=== PATIENT | female | born 1985 | race Caucasian/White ===

== ENCOUNTER 2016-12-25 00:19 | Emergency (ER) | payer OTHER ==
[~2016-12-25] VITALS: Ht 172.7 cm; Wt 95.3 kg
[~2016-12-25 00:19] MED LIST: ATARAX25 MG PO; AUGMENTIN 875 M1 TAB PO; BACTRIM DS 8001 TA1 PO; BACTROBAN CREAM15 GM T; BLADDER CONTROL; CATAFLAM50 MG PO; CEPHALEXIN500 M1 PO; CIPROFLOXACIN500 MG PO; CLARITIN10 MG PO; CLEOCIN HCL150 MG PO; CLINDAMYCIN HC300 MG PO; CLINDAMYCIN150 MG PO; COLACE100 MG PO; DIFLUCAN150 MG PO; EFFEXOR XR150 M1 PO; EFFEXOR75 MG PO; ELIMITE 5%60 GM T; FLEXERIL5 MG PO; FLONASE ALLERG9.9 ML NAS; GEODON80 MG; HYDROCHLOROTH12.5 MG PO; HYDROCODONE BIT1 T11 PO; KEFLEX500 MG PO; LEVOFLOXACIN500 MG PO; MACROBID100 M1 PO; MEDROL DOSEPAK4 MG PO; MIRALAX POWDER17 G1 PO; MOTRIN800 MG PO; MYLICON,MYLANTA40 MG PO; NAPROSYN500 MG PO; NAPROXEN EC500 MG PO; NORCO 5-325 TA1 EACH PO; OXYBUTYNIN5 MG PO; PERCOCET 325 MG1 TA2 PO; PERCOCET 325 MG1 TA7 PO; PHENERGAN25 MG RC; PREDNICOT20 MG PO; PREDNISONE10 MG PO; PREDNISONE20 MG PO; PRILOSEC20 M1 PO; PYRIDIUM200 M1 PO; PYRIDIUM200 MG PO; ROBITUSSIN AC 110 ML PO; TORADOL10 MG PO; TRAMADOL HCL50 MG PO; VENLAFAXINE HCL75 MG PO; VENLAFAXINE150 MG PO; VICODIN 5/500 505 MG PO; XANAX2 MG PO; ZOFRAN ODT4 MG SL; Zofran4 MG PO
[2016-12-25 00:50] VITALS: BP 150/110
[2017-01-08] MEDS ORDERED: MACROBID100 M1 PO (15:36)
== END 2016-12-25 03:50 | disposition home or self-care (01) ==
LOC: ED 00:19
DX: S09.93XA Unspecified injury of face, initial encounter (principal); M54.2 Cervicalgia; F17.200 Nicotine dependence, unspecified, uncomplicated; Z90.49 Acquired absence of other specified parts of digestive tract; Z88.2 Allergy status to sulfonamides; Z88.1 Allergy status to other antibiotic agents; Z88.8 Allergy status to other drugs, medicaments and biological substances; Y08.89XA Assault by other specified means, initial encounter; Y93.89 Activity, other specified; Y92.89 Other specified places as the place of occurrence of the external cause; Y99.9 Unspecified external cause status

== ENCOUNTER 2017-04-06 01:42 | Emergency (ER) | payer OTHER ==
[~2017-04-06] VITALS: Ht 175.2 cm; Wt 86.2 kg
[2017-04-06 01:51] VITALS: BP 149/94
[2017-04-06] MEDS ORDERED: CEFDINIR300 MG PO (02:04)
== END 2017-04-06 02:40 | disposition home or self-care (01) ==
LOC: ED 01:42
DX: J40 Bronchitis, not specified as acute or chronic (principal); J02.9 Acute pharyngitis, unspecified; Z90.49 Acquired absence of other specified parts of digestive tract; Z79.899 Other long term (current) drug therapy; Z88.2 Allergy status to sulfonamides; Z88.1 Allergy status to other antibiotic agents

== ENCOUNTER 2017-06-21 03:11 | Emergency (ER) | payer OTHER ==
[~2017-06-21] VITALS: Ht 175.2 cm; Wt 86.2 kg
[~2017-06-21 03:11] MED LIST changes: +CEFDINIR300 MG PO
[2017-06-21 03:23] VITALS: BP 180/98
[2017-06-21] MEDS ORDERED: FLAGYL500 MG PO (03:59)
[2017-06-21] MEDS ORDERED: ZITHROMAX250 MG PO (03:59)
[2017-06-21 04:18] LABS: BILIRUBIN NEGATIVE (NEGATIVE); BLOOD NEGATIVE (NEGATIVE); CLARITY CLEAR (CLEAR); COLOR YELLOW (YELLOW); GLUCOSE NEGATIVE (NEGATIVE); KETONE NEGATIVE (NEGATIVE); LEUKO ESTERASE NEGATIVE (NEGATIVE); NITRITE NEGATIVE (NEGATIVE); PH 6.5 (5.0-9.0); PROTEIN NEGATIVE (NEGATIVE); UROBILINOGEN 0.2 E.U./dl (0.2-1.0)
[2017-06-21 04:27] LABS: BACTERIA TRACE; YEAST 1+
[2017-06-21 04:28] LABS: URINE REFLEX COMMENT NO (NO)
== END 2017-06-21 05:16 | disposition home or self-care (01) ==
LOC: ED 03:11
PROVIDERS: Emergency Medicine Emergency Medical Services
DX: Z20.2 Contact with and (suspected) exposure to infections with a predominantly sexual mode of transmission (principal); R30.0 Dysuria; R10.2 Pelvic and perineal pain; Z88.1 Allergy status to other antibiotic agents; Z88.2 Allergy status to sulfonamides; Z79.899 Other long term (current) drug therapy

== ENCOUNTER 2017-07-27 13:24 | Emergency (ER) | payer OTHER ==
[~2017-07-27] VITALS: Ht 175.2 cm; Wt 86.2 kg
[~2017-07-27 13:24] MED LIST changes: +FLAGYL500 MG PO; +ZITHROMAX250 MG PO
[2017-07-27 13:45] VITALS: BP 150/90
[2017-07-27] MEDS ORDERED: CEPHALEXIN500 M1 PO (13:59)
== END 2017-07-27 14:03 | disposition home or self-care (01) ==
LOC: ED 13:24
DX: S80.862A Insect bite (nonvenomous), left lower leg, initial encounter (principal); F17.200 Nicotine dependence, unspecified, uncomplicated; Z90.49 Acquired absence of other specified parts of digestive tract; Z79.899 Other long term (current) drug therapy; Z88.2 Allergy status to sulfonamides; Z88.1 Allergy status to other antibiotic agents; Z88.8 Allergy status to other drugs, medicaments and biological substances; W57.XXXA Bitten or stung by nonvenomous insect and other nonvenomous arthropods, initial encounter; Y93.89 Activity, other specified; Y92.89 Other specified places as the place of occurrence of the external cause; Y99.9 Unspecified external cause status

== ENCOUNTER 2017-09-13 18:15 | Emergency (ER) | payer OTHER ==
[~2017-09-13] VITALS: Ht 175.2 cm; Wt 90.7 kg
[2017-09-13 18:23] VITALS: BP 145/100
[2017-09-13 18:52] LABS: BASO % 0.5 % (0.0-1.0); EOS # 0.1 10*3/uL (0.0-0.4); EOS % 1.4 % (1.0-4.0); HEMATOCRIT 50.6 % (37.0-47.0); HEMOGLOBIN 16.8 g/dl (12.0-16.0); LYMPH # 2.4 10*3/uL (1.3-4.4); LYMPH % 31.6 % (27.0-41.0); MEAN CELL VOLUME 91.3 fl (81.0-99.0); MEAN CORPUSCULAR HGB 30.3 pg (27.0-31.0); MEAN CORPUSCULAR HGB CONC 33.2 g/dl (33.0-37.0); MEAN PLATELET VOLUME 12.2 fl (9.6-12.3); MONO # 0.4 10*3/uL (0.1-1.0); MONO % 5.1 % (3.0-9.0); NEUT # 4.5 10*3/uL (2.3-7.9); PLATELET COUNT AUTOMATED 157 10*3/uL (130-400); RED BLOOD COUNT 5.54 10*6/uL (4.10-5.10); RED CELL DISTRI WIDTH 13.9 % (0-14.5); WHITE BLOOD COUNT 7.6 10*3/uL (4.8-10.8)
[2017-09-13 18:52] LABS: BILIRUBIN NEGATIVE (NEGATIVE); BLOOD 3+ (NEGATIVE); CLARITY SL CLOUDY (CLEAR); COLOR YELLOW (YELLOW); GLUCOSE NEGATIVE (NEGATIVE); KETONE NEGATIVE (NEGATIVE); LEUKO ESTERASE TRACE (NEGATIVE); NITRITE NEGATIVE (NEGATIVE); PH 7.5 (5.0-9.0); UROBILINOGEN >= 8.0 E.U./dl (0.2-1.0)
[2017-09-13 19:05] LABS: BACTERIA 1+; EPITHELIAL CELLS TNTC
[2017-09-13 19:09] LABS: ALBUMIN 3.8 gm/dl (3.1-4.5); ALKALINE PHOSPHATASE 89 U/L (45-117); BUN 8 mg/dl (7-24); CHLORIDE 105 mmol/L (98-107); CREATININE 1.02 mg/dL (0.55-1.02); LIPASE 218 U/L (73-393); POTASSIUM 4.1 mmol/L (3.5-5.1); SGOT/AST 49 IU/L (3-35); SGPT/ALT 63 U/L (12-78); SODIUM 139 mmol/L (136-145); TOTAL PROTEIN 8.2 gm/dL (6.4-8.2)
[2017-09-13] MEDS ORDERED: PYRIDIUM100 MG PO (20:32)
[2017-09-13] MEDS ORDERED: CIPRO500 MG PO (20:32)
== END 2017-09-13 20:37 | disposition home or self-care (01) ==
LOC: ED 18:15
PROVIDERS: Nurse Practitioner Family
DX: N30.01 Acute cystitis with hematuria (principal); F17.200 Nicotine dependence, unspecified, uncomplicated; Z88.1 Allergy status to other antibiotic agents; Z88.2 Allergy status to sulfonamides; Z90.49 Acquired absence of other specified parts of digestive tract

== ENCOUNTER 2017-10-26 15:32 | Emergency (ER) | payer MEDICAID ==
[~2017-10-26] VITALS: Ht 175.2 cm; Wt 95.3 kg
[~2017-10-26 15:32] MED LIST changes: +CIPRO500 MG PO; +PYRIDIUM100 MG PO
[2017-10-26 15:42] VITALS: BP 136/98
[2017-10-26] MEDS ORDERED: AUGMENTIN 875875 MG PO (16:05)
[2017-10-26] MEDS ORDERED: BACTROBAN CREAM15 GM PO (16:05)
[2017-10-26] MEDS ORDERED: FLONASE ALLERG9.9 ML NAS (16:05)
== END 2017-10-26 16:22 | disposition home or self-care (01) ==
LOC: ED 15:32
DX: J01.90 Acute sinusitis, unspecified (principal); F17.200 Nicotine dependence, unspecified, uncomplicated; R21 Rash and other nonspecific skin eruption; Z88.2 Allergy status to sulfonamides; Z88.1 Allergy status to other antibiotic agents

== ENCOUNTER 2017-11-02 16:42 | Emergency (ER) | payer SELFPAY ==
[~2017-11-02] VITALS: Wt 90.7 kg
[~2017-11-02 16:42] MED LIST changes: +AUGMENTIN 875875 MG PO; +BACTROBAN CREAM15 GM PO
[2017-11-02 16:54] VITALS: BP 145/84
[2017-11-02] MEDS ORDERED: PREDNISONE50 MG PO (18:37)
== END 2017-11-02 19:05 | disposition home or self-care (01) ==
LOC: ED 16:42
DX: J06.9 Acute upper respiratory infection, unspecified (principal); R03.0 Elevated blood-pressure reading, without diagnosis of hypertension; R21 Rash and other nonspecific skin eruption; F17.200 Nicotine dependence, unspecified, uncomplicated; F10.10 Alcohol abuse, uncomplicated; Z88.2 Allergy status to sulfonamides; Z88.8 Allergy status to other drugs, medicaments and biological substances; Z79.899 Other long term (current) drug therapy; Z90.49 Acquired absence of other specified parts of digestive tract

== ENCOUNTER 2017-11-07 22:12 | Emergency (ER) | payer MEDICAID ==
[~2017-11-07] VITALS: Ht 177.8 cm; Wt 90.7 kg
[~2017-11-07 22:12] MED LIST changes: +PREDNISONE50 MG PO
[2017-11-07 22:24] VITALS: BP 142/105
[2017-11-07] MEDS ORDERED: CYCLOBENZAPRINE5 M3 PO (23:41)
== END 2017-11-07 23:59 | disposition home or self-care (01) ==
LOC: ED 22:12
DX: S16.1XXA Strain of muscle, fascia and tendon at neck level, initial encounter (principal); M79.1 Myalgia; F10.10 Alcohol abuse, uncomplicated; F17.200 Nicotine dependence, unspecified, uncomplicated; Z88.2 Allergy status to sulfonamides; Z88.1 Allergy status to other antibiotic agents; Z88.8 Allergy status to other drugs, medicaments and biological substances; Z79.899 Other long term (current) drug therapy; Z90.49 Acquired absence of other specified parts of digestive tract; X58.XXXA Exposure to other specified factors, initial encounter; Y93.89 Activity, other specified; Y92.89 Other specified places as the place of occurrence of the external cause; Y99.8 Other external cause status

== ENCOUNTER 2017-11-25 15:23 | Emergency (ER) | payer MEDICAID ==
[~2017-11-25] VITALS: Wt 90.7 kg
[~2017-11-25 15:23] MED LIST changes: +CYCLOBENZAPRINE5 M3 PO
[2017-11-25 15:27] VITALS: BP 155/98
[2017-11-25] MEDS ORDERED: ZITHROMAX250 MG PO (16:36)
[2017-11-25] MEDS ORDERED: MEDROL DOSEPAK4 MG PO (16:36)
== END 2017-11-25 16:44 | disposition home or self-care (01) ==
LOC: ED 15:23
DX: J01.90 Acute sinusitis, unspecified (principal); J40 Bronchitis, not specified as acute or chronic; F17.200 Nicotine dependence, unspecified, uncomplicated; Z90.49 Acquired absence of other specified parts of digestive tract; Z87.01 Personal history of pneumonia (recurrent); Z79.899 Other long term (current) drug therapy; Z88.2 Allergy status to sulfonamides; Z88.1 Allergy status to other antibiotic agents; Z88.8 Allergy status to other drugs, medicaments and biological substances

== ENCOUNTER 2018-01-04 14:12 | Emergency (ER) | payer OTHER ==
[~2018-01-04] VITALS: Wt 95.3 kg
[2018-01-04 14:30] VITALS: BP 128/93
[2018-01-04] MEDS ORDERED: Zofran4 MG PO (15:40)
[2018-01-04] MEDS ORDERED: Motrin,Rufen800 MG PO (15:40)
== END 2018-01-04 15:53 | disposition home or self-care (01) ==
LOC: ED 14:12
DX: J11.1 Influenza due to unidentified influenza virus with other respiratory manifestations (principal); H92.03 Otalgia, bilateral; Z88.1 Allergy status to other antibiotic agents; Z88.2 Allergy status to sulfonamides; Z79.899 Other long term (current) drug therapy; F17.200 Nicotine dependence, unspecified, uncomplicated

== ENCOUNTER 2018-03-03 09:28 | Emergency (ER) | payer OTHER ==
[~2018-03-03] VITALS: Ht 175.2 cm; Wt 86.2 kg
[~2018-03-03 09:28] MED LIST changes: +Motrin,Rufen800 MG PO
[2018-03-03 09:38] VITALS: BP 124/66
[2018-03-03 09:52] LABS: COLOR YELLOW (YELLOW)
[2018-03-03 09:53] LABS: BILIRUBIN 1+ (NEGATIVE); BLOOD NEGATIVE (NEGATIVE); CLARITY CLEAR (CLEAR); GLUCOSE NEGATIVE (NEGATIVE); KETONE NEGATIVE (NEGATIVE); PH 5.5 (5.0-9.0); SPECIFIC GRAVITY >= 1.030 (1.005-1.030)
[2018-03-03 09:54] LABS: LEUKO ESTERASE 1+ (NEGATIVE); NITRITE NEGATIVE (NEGATIVE); RBC 0-2 rbc/hpf (0-2); UROBILINOGEN 0.2 E.U./dl (0.2-1.0); WBC 21-30 wbc/hpf (0-5)
[2018-03-03] MEDS ORDERED: DIFLUCAN150 MG PO (10:13)
[2018-03-03] MEDS ORDERED: FLAGYL500 MG PO (10:13)
[2018-03-03] MEDS ORDERED: ZITHROMAX250 MG PO (10:13)
[2018-03-03] MEDS ORDERED: LEVAQUIN250 M1 PO (10:13)
== END 2018-03-03 10:19 | disposition home or self-care (01) ==
LOC: ED 09:28
PROVIDERS: Emergency Medicine
DX: N39.0 Urinary tract infection, site not specified (principal); A59.9 Trichomoniasis, unspecified; F10.10 Alcohol abuse, uncomplicated; Z88.2 Allergy status to sulfonamides; Z88.8 Allergy status to other drugs, medicaments and biological substances; Z79.899 Other long term (current) drug therapy; Z90.49 Acquired absence of other specified parts of digestive tract

== ENCOUNTER 2018-03-06 01:34 | Emergency (ER) | payer OTHER ==
[~2018-03-06] VITALS: Ht 175.2 cm; Wt 90.7 kg
[~2018-03-06 01:34] MED LIST changes: +LEVAQUIN250 M1 PO
[2018-03-06 01:35] VITALS: BP 150/99
== END 2018-03-06 02:24 | disposition home or self-care (01) ==
LOC: ED 01:34
DX: Z20.2 Contact with and (suspected) exposure to infections with a predominantly sexual mode of transmission (principal); F17.200 Nicotine dependence, unspecified, uncomplicated; Z90.49 Acquired absence of other specified parts of digestive tract; Z79.899 Other long term (current) drug therapy; Z88.1 Allergy status to other antibiotic agents; Z88.8 Allergy status to other drugs, medicaments and biological substances; Z88.2 Allergy status to sulfonamides

== ENCOUNTER 2018-04-07 03:19 | Emergency (ER) | payer OTHER ==
[~2018-04-07] VITALS: Ht 172.7 cm; Wt 77.1 kg
[2018-04-07 03:26] VITALS: BP 145/99
[2018-04-07 03:46] LABS: BILIRUBIN NEGATIVE (NEGATIVE); BLOOD 3+ (NEGATIVE); CLARITY CLOUDY (CLEAR); COLOR YELLOW (YELLOW); GLUCOSE NEGATIVE (NEGATIVE); KETONE NEGATIVE (NEGATIVE); LEUKO ESTERASE 2+ (NEGATIVE); NITRITE POSITIVE (NEGATIVE); PH 5.5 (5.0-9.0); SPECIFIC GRAVITY >= 1.030 (1.005-1.030); UROBILINOGEN 0.2 E.U./dl (0.2-1.0)
[2018-04-07 04:14] LABS: BACTERIA 1+; RBC TNTC rbc/hpf (0-2); WBC TNTC wbc/hpf (0-5)
[2018-04-07 04:21] LABS: BASO % 0.4 % (0.0-1.0); EOS # 0.2 10*3/uL (0.0-0.4); EOS % 1.4 % (1.0-4.0); HEMATOCRIT 47.4 % (37.0-47.0); HEMOGLOBIN 15.6 g/dl (12.0-16.0); LYMPH # 2.9 10*3/uL (1.3-4.4); LYMPH % 27.5 % (27.0-41.0); MEAN CELL VOLUME 88.3 fl (81.0-99.0); MEAN CORPUSCULAR HGB 29.1 pg (27.0-31.0); MEAN CORPUSCULAR HGB CONC 32.9 g/dl (33.0-37.0); MEAN PLATELET VOLUME 12.8 fl (9.6-12.3); MONO # 0.5 10*3/uL (0.1-1.0); MONO % 5.1 % (3.0-9.0); NEUT # 6.8 10*3/uL (2.3-7.9); NEUT % 64.6 % (47.0-73.0); PLATELET COUNT AUTOMATED 159 10*3/uL (130-400); RED BLOOD COUNT 5.37 10*6/uL (4.10-5.10); RED CELL DISTRI WIDTH 12.8 % (0-14.5); WHITE BLOOD COUNT 10.6 10*3/uL (4.8-10.8)
[2018-04-07 04:35] LABS: ALBUMIN 3.8 gm/dl (3.1-4.5); ALKALINE PHOSPHATASE 62 U/L (45-117); BUN 5 mg/dl (7-24); CHLORIDE 109 mmol/L (98-107); CREATININE 0.92 mg/dL (0.55-1.02); POTASSIUM 3.6 mmol/L (3.5-5.1); SGOT/AST 18 IU/L (3-35); SGPT/ALT 24 U/L (12-78); SODIUM 142 mmol/L (136-145); TOTAL PROTEIN 7.2 gm/dL (6.4-8.2)
[2018-04-07] MEDS ORDERED: CIPRO500 MG PO (05:36)
== END 2018-04-07 05:40 | disposition home or self-care (01) ==
LOC: ED 03:19
PROVIDERS: Emergency Medicine
DX: N39.0 Urinary tract infection, site not specified (principal); R31.9 Hematuria, unspecified; F17.200 Nicotine dependence, unspecified, uncomplicated; Z90.49 Acquired absence of other specified parts of digestive tract; Z79.899 Other long term (current) drug therapy; Z88.2 Allergy status to sulfonamides; Z88.1 Allergy status to other antibiotic agents; Z88.8 Allergy status to other drugs, medicaments and biological substances

== ENCOUNTER 2018-05-25 05:25 | Emergency (ER) | payer OTHER ==
[~2018-05-25] VITALS: Ht 177.8 cm; Wt 89.8 kg
[2018-05-25 06:45] LABS: BILIRUBIN NEGATIVE (NEGATIVE); BLOOD NEGATIVE (NEGATIVE); CLARITY SL CLOUDY (CLEAR); COLOR YELLOW (YELLOW); GLUCOSE NEGATIVE (NEGATIVE); KETONE NEGATIVE (NEGATIVE); LEUKO ESTERASE TRACE (NEGATIVE); NITRITE NEGATIVE (NEGATIVE)
[2018-05-25 06:53] LABS: BACTERIA 3+
[2018-05-25] MEDS ORDERED: MOBIC7.5 MG PO (06:56)
[2018-05-25] MEDS ORDERED: VICODIN 5-3001 EACH PO (06:56)
[2018-05-25] MEDS ORDERED: CYCLOBENZAPRINE10 MG PO (06:56)
[2018-05-25 07:04] VITALS: BP 128/82
== END 2018-05-25 07:14 | disposition home or self-care (01) ==
LOC: ED 05:25
PROVIDERS: Emergency Medicine
DX: S39.012A Strain of muscle, fascia and tendon of lower back, initial encounter (principal); F17.200 Nicotine dependence, unspecified, uncomplicated; I10 Essential (primary) hypertension; G89.29 Other chronic pain; Z90.49 Acquired absence of other specified parts of digestive tract; Z79.899 Other long term (current) drug therapy; Z88.2 Allergy status to sulfonamides; Z88.1 Allergy status to other antibiotic agents; Z88.8 Allergy status to other drugs, medicaments and biological substances; X58.XXXA Exposure to other specified factors, initial encounter; Y93.89 Activity, other specified; Y92.89 Other specified places as the place of occurrence of the external cause; Y99.9 Unspecified external cause status

== ENCOUNTER 2018-06-01 12:01 | Emergency (ER) | payer OTHER ==
[~2018-06-01] VITALS: Ht 170.1 cm; Wt 86.2 kg
--- NOTE | ~2018-06-01 | EKG ---
[place], [place] ELECTROCARDIOGRAM REPORT NAME: FREDO RODRIGUEZ UNIT #: [id number] ROOM: DOCTOR: NOAM HOGUE MD BIRTHDATE: [birth year] DOS: 06/01/2018 TIME: 1212 hours. Sinus tachycardia at 131 beats per minute. Nonspecific T-wave changes in lateral leads. An abnormal ECG. No previous tracing is available for comparison. NOAM HOGUE MD CM:EKGRPT:ELECTROCARDIOGRAM REPORT [id number] NOAM HOGUE MD
[~2018-06-01 12:01] MED LIST changes: +CYCLOBENZAPRINE10 MG PO; +MOBIC7.5 MG PO; +VICODIN 5-3001 EACH PO
[2018-06-01 12:24] LABS: BASO # 0.1 10*3/uL (0.0-0.1); BASO % 0.5 % (0.0-1.0); EOS % 0.3 % (1.0-4.0); HEMATOCRIT 49.8 % (37.0-47.0); HEMOGLOBIN 16.9 g/dl (12.0-16.0); LYMPH # 2.2 10*3/uL (1.3-4.4); LYMPH % 23.3 % (27.0-41.0); MEAN CELL VOLUME 88.3 fl (81.0-99.0); MEAN CORPUSCULAR HGB CONC 33.9 g/dl (33.0-37.0); MEAN PLATELET VOLUME 12.3 fl (9.6-12.3); MONO # 0.7 10*3/uL (0.1-1.0); MONO % 7.3 % (3.0-9.0); NEUT # 6.3 10*3/uL (2.3-7.9); PLATELET COUNT AUTOMATED 202 10*3/uL (130-400); RED BLOOD COUNT 5.64 10*6/uL (4.10-5.10); RED CELL DISTRI WIDTH 13.2 % (0-14.5); WHITE BLOOD COUNT 9.3 10*3/uL (4.8-10.8)
[2018-06-01 12:42] LABS: ALBUMIN 4.4 gm/dl (3.1-4.5); ALKALINE PHOSPHATASE 76 U/L (45-117); BUN 8 mg/dl (7-24); CHLORIDE 107 mmol/L (98-107); CREATININE 1.25 mg/dL (0.55-1.02); POTASSIUM 4.2 mmol/L (3.5-5.1); SGOT/AST 25 IU/L (3-35); SGPT/ALT 43 U/L (12-78); SODIUM 141 mmol/L (136-145); TOTAL PROTEIN 8.9 gm/dL (6.4-8.2)
[2018-06-01 14:32] VITALS: BP 121/82
== END 2018-06-01 16:51 | disposition home or self-care (01) ==
LOC: ED 12:01
PROVIDERS: Emergency Medicine
DX: F14.10 Cocaine abuse, uncomplicated (principal); Z90.49 Acquired absence of other specified parts of digestive tract; Z79.899 Other long term (current) drug therapy; Z88.2 Allergy status to sulfonamides; Z88.1 Allergy status to other antibiotic agents; Z88.8 Allergy status to other drugs, medicaments and biological substances

== ENCOUNTER 2018-11-29 05:06 | Emergency (ER) | payer OTHER ==
[~2018-11-29] VITALS: Ht 175.2 cm; Wt 99.8 kg
[2018-11-29 05:07] VITALS: BP 152/72
[2018-11-29 05:51] LABS: BASO # 0.1 10*3/uL (0.0-0.1); BASO % 0.7 % (0.0-1.0); EOS # 0.1 10*3/uL (0.0-0.4); EOS % 1.3 % (1.0-4.0); HEMATOCRIT 44.2 % (37.0-47.0); LYMPH # 3.4 10*3/uL (1.3-4.4); LYMPH % 31.3 % (27.0-41.0); MEAN CELL VOLUME 89.3 fl (81.0-99.0); MEAN CORPUSCULAR HGB 30.3 pg (27.0-31.0); MEAN CORPUSCULAR HGB CONC 33.9 g/dl (33.0-37.0); MEAN PLATELET VOLUME 11.7 fl (9.6-12.3); MONO # 0.6 10*3/uL (0.1-1.0); MONO % 5.8 % (3.0-9.0); NEUT # 6.4 10*3/uL (2.3-7.9); NEUT % 58.3 % (47.0-73.0); PLATELET COUNT AUTOMATED 183 10*3/uL (130-400); RED BLOOD COUNT 4.95 10*6/uL (4.10-5.10); RED CELL DISTRI WIDTH 13.9 % (0-14.5)
[2018-11-29 05:59] LABS: ALKALINE PHOSPHATASE 90 U/L (45-117); BUN 8 mg/dl (7-24); CHLORIDE 110 mmol/L (98-107); CREATININE 0.94 mg/dL (0.55-1.02); LIPASE 236 U/L (73-393); POTASSIUM 4.3 mmol/L (3.5-5.1); SGOT/AST 33 IU/L (3-35); SGPT/ALT 45 U/L (12-78); SODIUM 140 mmol/L (136-145); TOTAL PROTEIN 8.3 gm/dL (6.4-8.2)
[2018-11-29 06:23] LABS: BETA-HCG, QUANT < 1.0 mIU/mL (1-3)
[2018-11-29 07:05] LABS: BILIRUBIN NEGATIVE (NEGATIVE); BLOOD NEGATIVE (NEGATIVE); CLARITY CLEAR (CLEAR); COLOR YELLOW (YELLOW); GLUCOSE NEGATIVE (NEGATIVE); KETONE NEGATIVE (NEGATIVE); LEUKO ESTERASE NEGATIVE (NEGATIVE); NITRITE NEGATIVE (NEGATIVE); PH 7.5 (5.0-9.0); SPECIFIC GRAVITY 1.015 (1.005-1.030); UROBILINOGEN 0.2 E.U./dl (0.2-1.0)
[2018-11-29 07:13] LABS: WBC 0-2 wbc/hpf (0-5)
[2018-11-29] MEDS ORDERED: Motrin,Rufen800 MG PO (09:21)
== END 2018-11-29 09:32 | disposition home or self-care (01) ==
LOC: ED 05:06
PROVIDERS: Emergency Medicine Emergency Medical Services
DX: N83.201 Unspecified ovarian cyst, right side (principal); Z98.51 Tubal ligation status; Z88.2 Allergy status to sulfonamides; Z88.1 Allergy status to other antibiotic agents; Z79.899 Other long term (current) drug therapy

== ENCOUNTER 2019-01-01 01:14 | Emergency (ER) | payer OTHER ==
[~2019-01-01] VITALS: Ht 175.2 cm; Wt 97.5 kg
[2019-01-01 01:20] VITALS: BP 129/85
== END 2019-01-01 02:58 | disposition left against medical advice (07) ==
LOC: ED 01:14
DX: S02.31XA Fracture of orbital floor, right side, initial encounter for closed fracture (principal); S01.111A Laceration without foreign body of right eyelid and periocular area, initial encounter; F17.200 Nicotine dependence, unspecified, uncomplicated; Z88.2 Allergy status to sulfonamides; Z88.1 Allergy status to other antibiotic agents; Z79.899 Other long term (current) drug therapy; Y08.89XA Assault by other specified means, initial encounter; Y93.89 Activity, other specified; Y92.89 Other specified places as the place of occurrence of the external cause; Y99.8 Other external cause status

== ENCOUNTER 2019-01-01 19:48 | Emergency (ER) | payer OTHER ==
[~2019-01-01] VITALS: Ht 175.2 cm; Wt 99.8 kg
[2019-01-01 21:22] LABS: BASO # 0.1 10*3/uL (0.0-0.1); BASO % 0.8 % (0.0-1.0); EOS # 0.1 10*3/uL (0.0-0.4); EOS % 1.3 % (1.0-4.0); HEMATOCRIT 46.9 % (37.0-47.0); HEMOGLOBIN 15.7 g/dl (12.0-16.0); LYMPH # 3.1 10*3/uL (1.3-4.4); LYMPH % 30.7 % (27.0-41.0); MEAN CELL VOLUME 90.2 fl (81.0-99.0); MEAN CORPUSCULAR HGB 30.2 pg (27.0-31.0); MEAN CORPUSCULAR HGB CONC 33.5 g/dl (33.0-37.0); MEAN PLATELET VOLUME 12.6 fl (9.6-12.3); MONO # 0.6 10*3/uL (0.1-1.0); NEUT # 6.1 10*3/uL (2.3-7.9); NEUT % 59.8 % (47.0-73.0); PLATELET COUNT AUTOMATED 176 10*3/uL (130-400); RED CELL DISTRI WIDTH 12.9 % (0-14.5); WHITE BLOOD COUNT 10.2 10*3/uL (4.8-10.8)
[2019-01-01 21:40] LABS: ALBUMIN 3.6 gm/dl (3.1-4.5); ALKALINE PHOSPHATASE 83 U/L (45-117); BUN 11 mg/dl (7-24); CHLORIDE 108 mmol/L (98-107); CREATININE 0.97 mg/dL (0.55-1.02); POTASSIUM 3.7 mmol/L (3.5-5.1); SGOT/AST 19 IU/L (3-35); SGPT/ALT 28 U/L (12-78); SODIUM 139 mmol/L (136-145); TOTAL PROTEIN 7.8 gm/dL (6.4-8.2)
[2019-01-01 23:10] VITALS: BP 124/78
== END 2019-01-01 21:38 | disposition short-term general hospital (02) ==
LOC: ED 19:48
PROVIDERS: Emergency Medicine
DX: S02.31XA Fracture of orbital floor, right side, initial encounter for closed fracture (principal); S00.11XA Contusion of right eyelid and periocular area, initial encounter; Z88.2 Allergy status to sulfonamides; Z88.1 Allergy status to other antibiotic agents; Y08.89XA Assault by other specified means, initial encounter; Y93.89 Activity, other specified; Y92.89 Other specified places as the place of occurrence of the external cause; Y99.8 Other external cause status

== ENCOUNTER 2019-01-28 22:08 | Emergency (ER) | payer OTHER ==
[~2019-01-28] VITALS: Ht 175.2 cm; Wt 99.8 kg
[2019-01-28 22:09] VITALS: BP 145/86
[2019-01-28 22:36] LABS: BILIRUBIN NEGATIVE (NEGATIVE); BLOOD 3+ (NEGATIVE); CLARITY CLOUDY (CLEAR); COLOR YELLOW (YELLOW); GLUCOSE NEGATIVE (NEGATIVE); KETONE NEGATIVE (NEGATIVE); LEUKO ESTERASE 3+ (NEGATIVE); NITRITE POSITIVE (NEGATIVE); UROBILINOGEN 0.2 E.U./dl (0.2-1.0)
[2019-01-28 22:46] LABS: BACTERIA 1+; RBC 41-50 rbc/hpf (0-2); WBC 41-50 wbc/hpf (0-5)
== END 2019-01-28 23:27 | disposition home or self-care (01) ==
LOC: ED 22:08
PROVIDERS: Student in an Organized Health Care Education/Training Program
DX: N39.0 Urinary tract infection, site not specified (principal); Z88.2 Allergy status to sulfonamides; Z88.1 Allergy status to other antibiotic agents; Z90.49 Acquired absence of other specified parts of digestive tract

== ENCOUNTER 2019-01-29 16:08 | Inpatient (IN) | payer OTHER ==
[~2019-01-29] VITALS: Ht 175.3 cm; Wt 98.2 kg
--- NOTE | ~2019-01-29 | WRIGHTHP ---
[place], [place] PATIENT HISTORY AND PHYSICAL EXAM NAME: FREDO RODRIGUEZ [facility] #: [id number] UNIT #: [id number] ROOM: 504 DOCTOR: MAGY MONET MD BIRTHDATE: [birth year] DOS: 01/29/2019 HISTORY OF PRESENT ILLNESS: The patient is a 33-year-old female with a past medical history of: 1. Gastritis and gastric ulcers. 2. Chronic back pain. 3. History of cholecystectomy. 4. History of major depression, recurrent, presented to the Emergency Department with complaints of nausea, bilateral flank pain more on the left side, fever and shaking chills. The patient was diagnosed as having pyelonephritis and urine cultures are growing heavy gram-negative bacilli more than 100,000 colonies, and she was admitted for IV antibiotics. Potassium level low at 3.4. No chest pain, no shortness of breath, no other GI or urinary symptoms. REVIEW OF SYSTEMS: RESPIRATORY: No increasing shortness breath or wheezing. GASTROINTESTINAL: The patient has nausea, vomiting, bilateral flank pains. CARDIOVASCULAR SYSTEM: No chest pain with palpitation. RESPIRATORY: No increasing shortness of breath or wheezing. FAMILY HISTORY: Noncontributory. HOME MEDICATIONS: None. ALLERGIES: KNOWN ALLERGIES TO SULFA, MACROBID. PHYSICAL EXAMINATION: GENERAL: The patient is alert and oriented with obesity, BMI of 32. HEENT AND NECK: Extraocular movements are intact. Sclerae are anicteric. Oral mucosa is moist and clean. No obvious facial weakness. Neck is supple without any lymphadenopathy. No thyromegaly. No JVD. No carotid arterial bruits. LUNGS: Clear to auscultation. No wheezing. No rhonchi. CARDIOVASCULAR SYSTEM: Heart rate is regular in rate and rhythm. S1 and S2 normally audible. No significant murmur or any other abnormal cardiac sounds. ABDOMEN: Soft, nontender. No obvious organomegaly. Bowel sounds are present. No obvious herniation. Bilateral flank pains more on the left side. EXTREMITIES: Without significant cyanosis or edema. Warm to touch. CENTRAL NERVOUS SYSTEM: Alert and oriented x 3. Cranial nerves II-XII are intact. Speech is normal. The patient is able to move all extremities. Normal muscle strength. Deep tendon reflexes are equal on both sides. Plantars were downgoing. IMPRESSION: 1. Left pyelonephritis with fever, chills, temperature recorded at 101 degrees Fahrenheit and positive urine cultures. Final results are still pending. The patient was started on ceftriaxone and her symptoms are improving. The patient kept on ondansetron for vomiting. 2. Nausea, vomiting related to pyelonephritis being treated and controlled with ondansetron. [place], [place] PATIENT HISTORY AND PHYSICAL EXAM NAME: FREDO RODRIGUEZ UNIT #: [id number] ROOM: [facility] DOCTOR: MAGY MONET MD BIRTHDATE: [birth year] 3. Significant bilateral flank pains from pyelonephritis being treated with ibuprofen and Tylenol combination which the patient is tolerating well. 4. History of hepatitis C positive. 5. Major depression, recurrent, mild, presently asymptomatic. 6. We will wait for urine and blood culture results. MAGY MONET MD CM:HISPHYS:PATIENT HISTORY AND PHYSICAL EXAMINATION 1805 [id number] MAGY MONET MD 01/30/192007 interface
[2019-01-29 16:09] VITALS: BP 120/89
[2019-01-29 17:00] LABS: BASO % 0.3 % (0.0-1.0); EOS # 0.1 10*3/uL (0.0-0.4); EOS % 0.6 % (1.0-4.0); HEMATOCRIT 48.1 % (37.0-47.0); LYMPH # 1.4 10*3/uL (1.3-4.4); LYMPH % 12.6 % (27.0-41.0); MEAN CELL VOLUME 90.4 fl (81.0-99.0); MEAN CORPUSCULAR HGB 30.1 pg (27.0-31.0); MEAN CORPUSCULAR HGB CONC 33.3 g/dl (33.0-37.0); MEAN PLATELET VOLUME 12.8 fl (9.6-12.3); MONO # 0.4 10*3/uL (0.1-1.0); MONO % 4.1 % (3.0-9.0); NEUT # 8.8 10*3/uL (2.3-7.9); NEUT % 81.6 % (47.0-73.0); PLATELET COUNT AUTOMATED 114 10*3/uL (130-400); RED BLOOD COUNT 5.32 10*6/uL (4.10-5.10); WHITE BLOOD COUNT 10.8 10*3/uL (4.8-10.8)
[2019-01-29 17:22] LABS: ALBUMIN 3.3 gm/dl (3.1-4.5); ALKALINE PHOSPHATASE 85 U/L (45-117); BUN 6 mg/dl (7-24); CHLORIDE 103 mmol/L (98-107); CREATININE 1.18 mg/dL (0.55-1.02); LIPASE 168 U/L (73-393); POTASSIUM 3.7 mmol/L (3.5-5.1); SGOT/AST 8 IU/L (3-35); SGPT/ALT 23 U/L (12-78); SODIUM 137 mmol/L (136-145); TOTAL PROTEIN 8.3 gm/dL (6.4-8.2)
[2019-01-29 17:29] LABS: BILIRUBIN NEGATIVE (NEGATIVE); BLOOD 3+ (NEGATIVE); CLARITY SL CLOUDY (CLEAR); COLOR YELLOW (YELLOW); GLUCOSE NEGATIVE (NEGATIVE); KETONE NEGATIVE (NEGATIVE); LEUKO ESTERASE 1+ (NEGATIVE); NITRITE NEGATIVE (NEGATIVE)
[2019-01-29 17:36] LABS: BACTERIA 2+; RBC 21-30 rbc/hpf (0-2); WBC 21-30 wbc/hpf (0-5)
[2019-01-29 18:00] VITALS: BP 122/88
[2019-01-29 18:55] VITALS: BP 115/68
[2019-01-30] VITALS: BP 103/66
[2019-01-30 07:25] LABS: BASO % 0.4 % (0.0-1.0); EOS # 0.1 10*3/uL (0.0-0.4); LYMPH # 1.7 10*3/uL (1.3-4.4); LYMPH % 17.7 % (27.0-41.0); MEAN CELL VOLUME 89.3 fl (81.0-99.0); MEAN CORPUSCULAR HGB 30.3 pg (27.0-31.0); MEAN CORPUSCULAR HGB CONC 33.9 g/dl (33.0-37.0); MEAN PLATELET VOLUME 13.3 fl (9.6-12.3); MONO # 0.8 10*3/uL (0.1-1.0); MONO % 8.5 % (3.0-9.0); NEUT % 71.4 % (47.0-73.0); PLATELET COUNT AUTOMATED 109 10*3/uL (130-400); RED BLOOD COUNT 4.49 10*6/uL (4.10-5.10); RED CELL DISTRI WIDTH 11.9 % (0-14.5); WHITE BLOOD COUNT 9.8 10*3/uL (4.8-10.8)
[2019-01-30 07:28] LABS: BUN 7 mg/dl (7-24); CHLORIDE 109 mmol/L (98-107); CREATININE 0.88 mg/dL (0.55-1.02); HEMATOCRIT 40.1 % (37.0-47.0); POTASSIUM 3.4 mmol/L (3.5-5.1); SODIUM 140 mmol/L (136-145)
[2019-01-30 07:29] LABS: HEMOGLOBIN 13.6 g/dl (12.0-16.0)
[2019-01-30 08:00] VITALS: BP 116/62
[2019-01-30 12:00] VITALS: BP 121/80
[2019-01-30 16:00] VITALS: BP 135/87
== END 2019-01-30 19:10 | disposition left against medical advice (07) | DRG 872 ==
LOC: ED 16:08 → 5E 18:34 → EDHOLD 18:34 → 5E 18:44
PROVIDERS: Emergency Medicine; Internal Medicine; ADMIT Internal Medicine
DX: A41.9 Sepsis, unspecified organism (principal); N12 Tubulo-interstitial nephritis, not specified as acute or chronic; F33.0 Major depressive disorder, recurrent, mild; B18.2 Chronic viral hepatitis C; G89.29 Other chronic pain; M54.9 Dorsalgia, unspecified; Z72.0 Tobacco use; Z71.6 Tobacco abuse counseling; Z88.2 Allergy status to sulfonamides; Z88.8 Allergy status to other drugs, medicaments and biological substances; Z87.81 Personal history of (healed) traumatic fracture; Z87.01 Personal history of pneumonia (recurrent); Z87.440 Personal history of urinary (tract) infections

== ENCOUNTER 2019-10-07 06:36 | Emergency (ER) | payer OTHER ==
[~2019-10-07] VITALS: Ht 175.2 cm; Wt 90.7 kg
[2019-10-07 06:38] VITALS: BP 151/124
[2019-10-07 07:21] LABS: BILIRUBIN 2+ (NEGATIVE); BLOOD NEGATIVE (NEGATIVE); CLARITY CLOUDY (CLEAR); COLOR YELLOW (YELLOW); GLUCOSE NEGATIVE (NEGATIVE); KETONE TRACE (NEGATIVE); LEUKO ESTERASE NEGATIVE (NEGATIVE); NITRITE POSITIVE (NEGATIVE); PH 6.5 (5.0-9.0); SPECIFIC GRAVITY 1.025 (1.005-1.030)
[2019-10-07] MEDS ORDERED: CEPHALEXIN500 M1 PO (07:37)
[2019-10-07 07:41] LABS: BACTERIA 4+; CALCIUM OXALATE CRYSTALS 3+; EPITHELIAL CELLS 15-20
[2019-10-07 08:22] LABS: URINE AMPHETAMINES > 1000 (1000ng/ml); URINE BARBITURATES < 200 (200ng/ml); URINE BENZODIAZEPINES < 200 (200ng/ml); URINE CANNABINOIDS (THC) > 50 (50ng/ml); URINE COCAINE > 300 (300ng/ml); URINE METHADONE < 300 (300ng/ml); URINE OPIATES < 300 (300ng/ml)
[2019-10-07 08:23] LABS: URINE PHENCYCLIDINE < 25 (25ng/ml)
[2019-10-09 18:08] LABS: GONOCOCCUS BY NAA Negative (Negative)
== END 2019-10-07 08:00 | disposition home or self-care (01) ==
LOC: ED 06:36
PROVIDERS: Emergency Medicine
DX: L73.8 Other specified follicular disorders (principal); I10 Essential (primary) hypertension; F17.210 Nicotine dependence, cigarettes, uncomplicated; Z20.2 Contact with and (suspected) exposure to infections with a predominantly sexual mode of transmission; Z87.51 Personal history of pre-term labor; Z88.2 Allergy status to sulfonamides; Z88.1 Allergy status to other antibiotic agents

== ENCOUNTER 2020-01-07 00:03 | Emergency (ER) | payer OTHER ==
[~2020-01-07] VITALS: Ht 175.2 cm; Wt 90.7 kg
[2020-01-07 00:08] VITALS: BP 146/81
[2020-01-07 00:52] LABS: BASO % 0.4 % (0.0-1.0); EOS # 0.1 10*3/uL (0.0-0.4); EOS % 1.6 % (1.0-4.0); LYMPH # 2.9 10*3/uL (1.3-4.4); LYMPH % 37.8 % (27.0-41.0); MEAN CELL VOLUME 88.8 fl (81.0-99.0); MEAN CORPUSCULAR HGB 28.9 pg (27.0-31.0); MEAN CORPUSCULAR HGB CONC 32.6 g/dl (33.0-37.0); MEAN PLATELET VOLUME 12.7 fl (9.6-12.3); MONO # 0.4 10*3/uL (0.1-1.0); MONO % 5.2 % (3.0-9.0); NEUT # 4.1 10*3/uL (2.3-7.9); NEUT % 54.5 % (47.0-73.0); PLATELET COUNT AUTOMATED 153 10*3/uL (130-400); RED BLOOD COUNT 4.84 10*6/uL (4.10-5.10); RED CELL DISTRI WIDTH 12.3 % (0-14.5); WHITE BLOOD COUNT 7.6 10*3/uL (4.8-10.8)
[2020-01-07 01:34] LABS: ALBUMIN 3.6 gm/dl (3.1-4.5); ALKALINE PHOSPHATASE 64 U/L (45-117); CHLORIDE 107 mmol/L (98-107); CREATININE 0.89 mg/dL (0.55-1.02); POTASSIUM 4.1 mmol/L (3.5-5.1); SGPT/ALT 32 U/L (12-78); SODIUM 139 mmol/L (136-145); TOTAL PROTEIN 7.4 gm/dL (6.4-8.2)
[2020-01-07 01:48] LABS: BUN 8 mg/dl (7-24); SGOT/AST 13 IU/L (3-35)
[2020-01-07] MEDS ORDERED: CLINDAMYCIN HC300 MG PO (01:52)
== END 2020-01-07 02:34 | disposition home or self-care (01) ==
LOC: ED 00:03
PROVIDERS: Physician Assistant
DX: L02.211 Cutaneous abscess of abdominal wall (principal); L03.311 Cellulitis of abdominal wall; F17.210 Nicotine dependence, cigarettes, uncomplicated; Z88.2 Allergy status to sulfonamides; Z79.2 Long term (current) use of antibiotics; Z90.49 Acquired absence of other specified parts of digestive tract

== ENCOUNTER 2020-01-16 20:13 | Emergency (ER) | payer OTHER ==
[~2020-01-16] VITALS: Ht 172.7 cm; Wt 99.8 kg
[2020-01-16 20:20] VITALS: BP 127/90
== END 2020-01-16 22:45 | disposition home or self-care (01) ==
LOC: ED 20:13
DX: S09.90XA Unspecified injury of head, initial encounter (principal); F17.210 Nicotine dependence, cigarettes, uncomplicated; Z88.2 Allergy status to sulfonamides; W22.8XXA Striking against or struck by other objects, initial encounter; Y93.89 Activity, other specified; Y92.89 Other specified places as the place of occurrence of the external cause; Y99.8 Other external cause status

== ENCOUNTER 2020-01-22 20:57 | Emergency (ER) | payer OTHER ==
[~2020-01-22] VITALS: Ht 175.2 cm; Wt 90.7 kg
[2020-01-22 21:04] VITALS: BP 134/97
[2020-01-22 23:15] LABS: BASO % 0.5 % (0.0-1.0); EOS # 0.1 10*3/uL (0.0-0.4); EOS % 1.4 % (1.0-4.0); HEMATOCRIT 44.9 % (37.0-47.0); HEMOGLOBIN 14.2 g/dl (12.0-16.0); LYMPH # 3.1 10*3/uL (1.3-4.4); LYMPH % 35.5 % (27.0-41.0); MEAN CELL VOLUME 91.1 fl (81.0-99.0); MEAN CORPUSCULAR HGB 28.8 pg (27.0-31.0); MEAN CORPUSCULAR HGB CONC 31.6 g/dl (33.0-37.0); MEAN PLATELET VOLUME 12.5 fl (9.6-12.3); MONO # 0.5 10*3/uL (0.1-1.0); MONO % 5.3 % (3.0-9.0); NEUT # 4.9 10*3/uL (2.3-7.9); NEUT % 56.1 % (47.0-73.0); PLATELET COUNT AUTOMATED 145 10*3/uL (130-400); RED BLOOD COUNT 4.93 10*6/uL (4.10-5.10); RED CELL DISTRI WIDTH 12.6 % (0-14.5); WHITE BLOOD COUNT 8.6 10*3/uL (4.8-10.8)
[2020-01-22 23:27] LABS: ACT PARTIAL THROMBO TIME 27.9 SECONDS (20.0-32.1); INTERNATIONAL NORM RATIO 0.9 (2.0-3.5)
[2020-01-22 23:30] LABS: ALBUMIN 3.3 gm/dl (3.1-4.5); ALKALINE PHOSPHATASE 58 U/L (45-117); BUN 11 mg/dl (7-24); CHLORIDE 110 mmol/L (98-107); CREATININE 0.76 mg/dL (0.55-1.02); LIPASE 293 U/L (73-393); SGOT/AST 27 IU/L (3-35); SGPT/ALT 47 U/L (12-78); SODIUM 140 mmol/L (136-145); TOTAL PROTEIN 6.9 gm/dL (6.4-8.2)
[2020-01-23] MEDS ORDERED: CEPHALEXIN500 M1 PO (00:31)
== END 2020-01-23 00:50 | disposition home or self-care (01) ==
LOC: ED 20:57
PROVIDERS: Nurse Practitioner Family
DX: L02.211 Cutaneous abscess of abdominal wall (principal); I10 Essential (primary) hypertension; G89.29 Other chronic pain; F17.210 Nicotine dependence, cigarettes, uncomplicated; Z88.2 Allergy status to sulfonamides; Z88.1 Allergy status to other antibiotic agents; Z79.2 Long term (current) use of antibiotics; Z90.49 Acquired absence of other specified parts of digestive tract

== ENCOUNTER 2020-01-27 16:46 | Emergency (ER) | payer OTHER ==
[~2020-01-27] VITALS: Wt 81.6 kg
[2020-01-27 16:52] VITALS: BP 135/90
== END 2020-01-27 17:51 | disposition home or self-care (01) ==
LOC: ED 16:46
DX: S91.011A Laceration without foreign body, right ankle, initial encounter (principal); I10 Essential (primary) hypertension; F32.9 Major depressive disorder, single episode, unspecified; F17.200 Nicotine dependence, unspecified, uncomplicated; Z88.2 Allergy status to sulfonamides; Z88.8 Allergy status to other drugs, medicaments and biological substances; Z79.2 Long term (current) use of antibiotics; Z90.49 Acquired absence of other specified parts of digestive tract; W25.XXXA Contact with sharp glass, initial encounter; Y93.89 Activity, other specified; Y92.89 Other specified places as the place of occurrence of the external cause; Y99.8 Other external cause status

== ENCOUNTER 2020-04-01 02:09 | Emergency (ER) | payer OTHER ==
[~2020-04-01] VITALS: Wt 86.2 kg
[2020-04-01 04:41] VITALS: BP 146/89
[2020-04-01 07:08] LABS: URINE AMPHETAMINES > 1000 (1000ng/ml); URINE BARBITURATES < 200 (200ng/ml); URINE BENZODIAZEPINES < 200 (200ng/ml); URINE CANNABINOIDS (THC) > 50 (50ng/ml); URINE COCAINE < 300 (300ng/ml); URINE METHADONE < 300 (300ng/ml); URINE OPIATES < 300 (300ng/ml); URINE PHENCYCLIDINE < 25 (25ng/ml)
[2020-04-01 07:09] LABS: BILIRUBIN NEGATIVE (NEGATIVE); BLOOD NEGATIVE (NEGATIVE); CLARITY CLEAR (CLEAR); COLOR STRAW (YELLOW); GLUCOSE NEGATIVE (NEGATIVE); KETONE NEGATIVE (NEGATIVE); PH 6.5 (5.0-9.0); SPECIFIC GRAVITY 1.015 (1.005-1.030)
[2020-04-01 07:10] LABS: BACTERIA 1+; LEUKO ESTERASE TRACE (NEGATIVE); NITRITE NEGATIVE (NEGATIVE); UROBILINOGEN 0.2 E.U./dl (0.2-1.0)
== END 2020-04-01 04:31 | disposition home or self-care (01) ==
LOC: ED 02:09
PROVIDERS: Emergency Medicine
DX: R30.0 Dysuria (principal); N89.8 Other specified noninflammatory disorders of vagina; L73.9 Follicular disorder, unspecified; Z20.2 Contact with and (suspected) exposure to infections with a predominantly sexual mode of transmission; F15.10 Other stimulant abuse, uncomplicated; G89.29 Other chronic pain; F17.210 Nicotine dependence, cigarettes, uncomplicated; Z88.2 Allergy status to sulfonamides; Z79.2 Long term (current) use of antibiotics; Z90.49 Acquired absence of other specified parts of digestive tract; Z98.51 Tubal ligation status

== ENCOUNTER 2020-06-07 17:25 | Inpatient (IN) | payer OTHER ==
[~2020-06-07] VITALS: Ht 175.3 cm; Wt 80.5 kg
[2020-06-07 17:30] VITALS: BP 156/90
[2020-06-07 18:19] LABS: HEMATOCRIT 43.7 % (37.0-47.0); MEAN CELL VOLUME 84.9 fl (81.0-99.0); MEAN CORPUSCULAR HGB 28.9 pg (27.0-31.0); MEAN CORPUSCULAR HGB CONC 34.1 g/dl (33.0-37.0); MEAN PLATELET VOLUME 12.2 fl (9.6-12.3); PLATELET COUNT AUTOMATED 246 10*3/uL (130-400); RED BLOOD COUNT 5.15 10*6/uL (4.10-5.10); RED CELL DISTRI WIDTH 13.3 % (0-14.5); WHITE BLOOD COUNT 16.3 10*3/uL (4.8-10.8)
[2020-06-07 18:36] LABS: ALBUMIN 3.9 gm/dl (3.1-4.5); ALKALINE PHOSPHATASE 65 U/L (45-117); B-hCG (QUALITATIVE) NEGATIVE (NEGATIVE); BUN 8 mg/dl (7-24); CHLORIDE 111 mmol/L (98-107); CREATININE 0.98 mg/dL (0.55-1.02); POTASSIUM 2.6 mmol/L (3.5-5.1); SGOT/AST 118 IU/L (3-35); SGPT/ALT 71 U/L (12-78); SODIUM 141 mmol/L (136-145); TOTAL PROTEIN 7.7 gm/dL (6.4-8.2)
[2020-06-07 18:40] LABS: TOTAL CELLS COUNTED 100 #CELLS
[2020-06-07 18:41] LABS: PLATELET SUFFICIENCY NORMAL (NORMAL)
[2020-06-07 18:43] LABS: ETHYL ALCOHOL < 3.0 mg/dl (<3); TROPONIN I < 0.015 ng/ml (<0.045)
[2020-06-07 18:50] LABS: ACETAMINOPHEN (TYLENOL) 39.5 ug/ml (10-30)
[2020-06-07 18:57] VITALS: BP 118/69
[2020-06-07 19:03] LABS: VENOUS BLOOD GAS O2 SAT 99.4 % (40-85); VENOUS PH 7.435 (7.32-7.43)
[2020-06-07 19:09] VITALS: BP 114/58
[2020-06-07 20:10] VITALS: BP 117/63
[2020-06-07 20:19] LABS: URINE AMPHETAMINES > 1000 (1000ng/ml); URINE BARBITURATES < 200 (200ng/ml); URINE BENZODIAZEPINES < 200 (200ng/ml); URINE CANNABINOIDS (THC) > 50 (50ng/ml); URINE COCAINE < 300 (300ng/ml); URINE METHADONE < 300 (300ng/ml); URINE OPIATES < 300 (300ng/ml)
[2020-06-07 20:23] LABS: URINE PHENCYCLIDINE < 25 (25ng/ml)
[2020-06-07 20:28] VITALS: BP 137/82
[2020-06-07 20:52] LABS: POTASSIUM 3.4 mmol/L (3.5-5.1)
[2020-06-07 21:11] LABS: ACETAMINOPHEN (TYLENOL) 46.4 ug/ml (10-30)
[2020-06-08 00:06] VITALS: BP 119/69
== END 2020-06-08 01:20 | disposition left against medical advice (07) | DRG 812 ==
LOC: ED 17:25 → EDHOLD 19:43 → 5E 19:43
PROVIDERS: Physician Assistant; ADMIT Internal Medicine
DX: T39.1X1A Poisoning by 4-Aminophenol derivatives, accidental (unintentional), initial encounter (principal); Z88.2 Allergy status to sulfonamides; Z88.8 Allergy status to other drugs, medicaments and biological substances; Z90.49 Acquired absence of other specified parts of digestive tract; Y92.89 Other specified places as the place of occurrence of the external cause

== ENCOUNTER 2020-11-30 22:36 | Emergency (ER) | payer OTHER ==
[~2020-11-30] VITALS: Ht 175.2 cm; Wt 77.1 kg
[2020-11-30 23:02] VITALS: BP 132/78
== END 2020-11-30 23:45 | disposition home or self-care (01) ==
LOC: ED 22:36
DX: J03.00 Acute streptococcal tonsillitis, unspecified (principal); F32.9 Major depressive disorder, single episode, unspecified; F17.210 Nicotine dependence, cigarettes, uncomplicated; Z88.2 Allergy status to sulfonamides; Z88.1 Allergy status to other antibiotic agents; Z90.49 Acquired absence of other specified parts of digestive tract; Z98.890 Other specified postprocedural states

== ENCOUNTER 2021-03-07 12:33 | Emergency (ER) | payer OTHER ==
[~2021-03-07] VITALS: Ht 175.2 cm; Wt 81.6 kg
[2021-03-07 13:24] VITALS: BP 131/78
== END 2021-03-07 14:47 | disposition left against medical advice (07) ==
LOC: ED 12:33
DX: N93.8 Other specified abnormal uterine and vaginal bleeding (principal); Z53.21 Procedure and treatment not carried out due to patient leaving prior to being seen by health care provider

== ENCOUNTER 2021-03-11 10:38 | Emergency (ER) | payer OTHER ==
[~2021-03-11] VITALS: Wt 81.6 kg
[2021-03-11 11:34] VITALS: BP 161/93
[2021-03-11 11:38] LABS: BILIRUBIN Negative (Negative); BLOOD Negative (Negative); CLARITY Clear (Clear); COLOR Yellow (Yellow); GLUCOSE Negative (Negative); KETONE Negative (Negative); LEUKO ESTERASE Negative (Negative); NITRITE Negative (Negative)
[2021-03-11 11:40] LABS: PH 8.5 (4.5-8.0)
[2021-03-11 11:51] LABS: BASO # 0.1 10*3/uL (0.0-0.1); BASO % 0.6 % (0.0-1.0); EOS # 0.1 10*3/uL (0.0-0.4); EOS % 0.6 % (1.0-4.0); HEMATOCRIT 46.5 % (37.0-47.0); LYMPH # 2.3 10*3/uL (1.3-4.4); LYMPH % 26.2 % (27.0-41.0); MEAN CELL VOLUME 87.1 fl (81.0-99.0); MEAN CORPUSCULAR HGB 28.7 pg (27.0-31.0); MEAN CORPUSCULAR HGB CONC 32.9 g/dl (33.0-37.0); MEAN PLATELET VOLUME 11.1 fl (9.6-12.3); MONO # 0.4 10*3/uL (0.1-1.0); MONO % 4.8 % (3.0-9.0); NEUT % 66.7 % (47.0-73.0); PLATELET COUNT AUTOMATED 162 10*3/uL (130-400); RED BLOOD COUNT 5.34 10*6/uL (4.10-5.10); RED CELL DISTRI WIDTH 12.5 % (0-14.5); WHITE BLOOD COUNT 8.9 10*3/uL (4.8-10.8)
[2021-03-11 12:09] LABS: ALBUMIN 3.9 gm/dl (3.1-4.5); ALKALINE PHOSPHATASE 65 U/L (45-117); BUN 6 mg/dl (7-24); CHLORIDE 106 mmol/L (98-107); CREATININE 0.87 mg/dL (0.55-1.02); LIPASE 130 U/L (73-393); POTASSIUM 3.8 mmol/L (3.5-5.1); SGOT/AST 33 IU/L (3-35); SODIUM 137 mmol/L (136-145)
[2021-03-11 12:12] LABS: BETA-HCG, QUANT < 1.0 mIU/mL (1-3); SGPT/ALT 60 U/L (12-78)
[2021-03-11] MEDS ORDERED: DIFLUCAN150 MG PO (13:26)
== END 2021-03-11 13:32 | disposition home or self-care (01) ==
LOC: ED 10:38
PROVIDERS: Emergency Medicine
DX: B37.3 Candidiasis of vulva and vagina (principal); Z88.8 Allergy status to other drugs, medicaments and biological substances; Z88.2 Allergy status to sulfonamides; Z98.890 Other specified postprocedural states; Z90.49 Acquired absence of other specified parts of digestive tract

== ENCOUNTER 2021-04-01 17:50 | Emergency (ER) | payer OTHER ==
[~2021-04-01] VITALS: Ht 175.2 cm; Wt 81.6 kg
[2021-04-01 18:03] VITALS: BP 143/81
[2021-04-01 18:42] LABS: BILIRUBIN Negative (Negative); BLOOD Negative (Negative); CLARITY Cloudy (Clear); COLOR Yellow (Yellow); GLUCOSE Negative (Negative); KETONE Negative (Negative); LEUKO ESTERASE 2+ (Negative); NITRITE Positive (Negative)
[2021-04-01 19:01] LABS: BACTERIA 3+; WBC 51-100 wbc/hpf (0-5)
[2021-04-01] MEDS ORDERED: CEFUROXIME AXE500 MG PO (19:17)
== END 2021-04-01 19:30 | disposition home or self-care (01) ==
LOC: ED 17:50
PROVIDERS: Physician Assistant
DX: N39.0 Urinary tract infection, site not specified (principal); F12.90 Cannabis use, unspecified, uncomplicated; Z90.49 Acquired absence of other specified parts of digestive tract; Z98.890 Other specified postprocedural states; Z88.2 Allergy status to sulfonamides; Z88.1 Allergy status to other antibiotic agents; Z88.8 Allergy status to other drugs, medicaments and biological substances

== ENCOUNTER 2021-07-01 17:58 | Emergency (ER) | payer OTHER ==
[~2021-07-01] VITALS: Wt 86.2 kg
[~2021-07-01 17:58] MED LIST changes: +CEFUROXIME AXE500 MG PO
[2021-07-01 18:14] VITALS: BP 147/97
[2021-07-01] MEDS ORDERED: VIBRAMYCIN100 MG PO (19:52)
[2021-07-01] MEDS ORDERED: DESONIDE15 GM T (19:52)
[2021-07-01] MEDS ORDERED: CLOTRIMAZOLE45 G1 T (19:52)
== END 2021-07-01 20:01 | disposition home or self-care (01) ==
LOC: ED 17:58
DX: L25.9 Unspecified contact dermatitis, unspecified cause (principal); B36.0 Pityriasis versicolor; F12.90 Cannabis use, unspecified, uncomplicated; F17.210 Nicotine dependence, cigarettes, uncomplicated; Z90.49 Acquired absence of other specified parts of digestive tract; Z98.890 Other specified postprocedural states; Z88.2 Allergy status to sulfonamides; Z88.1 Allergy status to other antibiotic agents; Z88.8 Allergy status to other drugs, medicaments and biological substances

== ENCOUNTER 2022-04-09 07:09 | Emergency (ER) | payer MEDICAID ==
[~2022-04-09] VITALS: Wt 90.7 kg
[~2022-04-09 07:09] MED LIST changes: +CLOTRIMAZOLE45 G1 T; +DESONIDE15 GM T; +VIBRAMYCIN100 MG PO
[2022-04-09 07:14] VITALS: BP 135/70
[2022-04-09 07:37] LABS: BILIRUBIN Negative (Negative); BLOOD Negative (Negative); CLARITY Cloudy (Clear); COLOR Yellow (Yellow); GLUCOSE Negative (Negative); KETONE Negative (Negative); LEUKO ESTERASE 2+ (Negative); NITRITE Negative (Negative)
[2022-04-09 08:06] LABS: BACTERIA 2+
[2022-04-09] MEDS ORDERED: DIFLUCAN150 MG PO ×2 (08:30)
[2022-04-09] MEDS ORDERED: VIBRAMYCIN100 MG PO ×2 (08:30)
== END 2022-04-09 08:41 | disposition home or self-care (01) ==
LOC: ED 07:09
PROVIDERS: Emergency Medicine
DX: N76.0 Acute vaginitis (principal); Z20.2 Contact with and (suspected) exposure to infections with a predominantly sexual mode of transmission; Z88.1 Allergy status to other antibiotic agents; I10 Essential (primary) hypertension; Z90.49 Acquired absence of other specified parts of digestive tract; Z87.891 Personal history of nicotine dependence

== ENCOUNTER 2022-04-12 19:47 | Emergency (ER) | payer MEDICAID ==
[~2022-04-12] VITALS: Ht 172.7 cm; Wt 105.2 kg
[2022-04-12 20:02] VITALS: BP 140/77
== END 2022-04-12 22:57 | disposition home or self-care (01) ==
LOC: ED 19:47
DX: S01.511A Laceration without foreign body of lip, initial encounter (principal); W54.1XXA Struck by dog, initial encounter; Y93.89 Activity, other specified; Y92.89 Other specified places as the place of occurrence of the external cause; Y99.8 Other external cause status

== ENCOUNTER 2022-08-01 15:32 | Emergency (ER) | payer OTHER ==
[2022-08-01 16:33] LABS: BILIRUBIN Negative (Negative); BLOOD Negative (Negative); CLARITY Clear (Clear); COLOR Yellow (Yellow); GLUCOSE Negative (Negative); KETONE Negative (Negative); LEUKO ESTERASE Negative (Negative); NITRITE Negative (Negative); PH 6.5 (4.5-8.0)
[2022-08-01 16:42] LABS: URINE AMPHETAMINES > 1000 (1000ng/ml); URINE BARBITURATES < 200 (200ng/ml); URINE BENZODIAZEPINES < 200 (200ng/ml); URINE CANNABINOIDS (THC) > 50 (50ng/ml); URINE COCAINE < 300 (300ng/ml); URINE METHADONE < 300 (300ng/ml); URINE OPIATES < 300 (300ng/ml)
[2022-08-01 16:43] LABS: WBC 0-2 wbc/hpf (0-5)
[2022-08-01 16:44] LABS: URINE PHENCYCLIDINE < 25 (25ng/ml)
[2022-08-01] MEDS ORDERED: POLYSPORIN OINT15 GM T (17:10)
[2022-08-01 17:16] VITALS: BP 132/72
== END 2022-08-01 17:16 | disposition home or self-care (01) ==
LOC: ED 15:32
PROVIDERS: Emergency Medicine
DX: M54.9 Dorsalgia, unspecified (principal); L08.9 Local infection of the skin and subcutaneous tissue, unspecified; I10 Essential (primary) hypertension; F17.210 Nicotine dependence, cigarettes, uncomplicated; Z88.2 Allergy status to sulfonamides; Z88.1 Allergy status to other antibiotic agents; Z90.49 Acquired absence of other specified parts of digestive tract

== ENCOUNTER → 2023-01-19 | Outpatient (CLI) | payer OTHER ==
[~2023-01-19] MED LIST changes: +POLYSPORIN OINT15 GM T
[2023-01-19 17:05] LABS: BASO # 0.1 10*3/uL (0.0-0.1); BASO % 0.7 % (0.0-1.0); EOS # 0.1 10*3/uL (0.0-0.4); EOS % 1.5 % (1.0-4.0); HEMATOCRIT 45.5 % (37.0-47.0); LYMPH # 2.3 10*3/uL (1.3-4.4); LYMPH % 31.2 % (27.0-41.0); MEAN CELL VOLUME 88.2 fl (81.0-99.0); MEAN CORPUSCULAR HGB 28.7 pg (27.0-31.0); MEAN CORPUSCULAR HGB CONC 32.5 g/dl (33.0-37.0); MEAN PLATELET VOLUME 11.8 fl (9.6-12.3); MONO # 0.4 10*3/uL (0.1-1.0); MONO % 5.7 % (3.0-9.0); NEUT # 4.5 10*3/uL (2.3-7.9); NEUT % 59.8 % (47.0-73.0); PLATELET COUNT AUTOMATED 166 10*3/uL (130-400); RED BLOOD COUNT 5.16 10*6/uL (4.10-5.10); RED CELL DISTRI WIDTH 12.8 % (0-14.5); WHITE BLOOD COUNT 7.4 10*3/uL (4.8-10.8)
[2023-01-19 17:27] LABS: ALKALINE PHOSPHATASE 71 U/L (46-116); BUN 9 mg/dl (9-23); CHLORIDE 105 mmol/L (98-107); CHOLESTEROL 153 mg/dL (<200); FREE T4 1.08 ng/dl (0.89-1.76); LDL CHOLESTEROL 98 mg/dL (9-159); POTASSIUM 4.6 mmol/L (3.4-5.1); SGPT/ALT 43 U/L (10-49); THYROID STIM HORMONE (HS) 1.397 uIU/ml (0.550-4.780); TOTAL PROTEIN 7.4 gm/dL (6.0-8.0); TRIGLYCERIDES 76 mg/dl (<150)
[2023-01-19 17:38] LABS: VITAMIN D, 25-HYDROXY 32.6 ng/mL (30-100)
== END | disposition home or self-care (01) ==
LOC: LAB 16:38
PROVIDERS: ATTEND Internal Medicine
DX: Z13.29 Encounter for screening for other suspected endocrine disorder (principal); Z13.820 Encounter for screening for osteoporosis; Z13.1 Encounter for screening for diabetes mellitus; Z13.6 Encounter for screening for cardiovascular disorders; Z13.0 Encounter for screening for diseases of the blood and blood-forming organs and certain disorders involving the immune mechanism; Z13.21 Encounter for screening for nutritional disorder; Z13.220 Encounter for screening for lipoid disorders; Z13.228 Encounter for screening for other metabolic disorders; Z13.9 Encounter for screening, unspecified; I10 Essential (primary) hypertension; E55.9 Vitamin D deficiency, unspecified

== ENCOUNTER → 2023-11-15 | Outpatient (CLI) | payer OTHER ==
[2023-11-15 14:33] LABS: BASO # 0.1 10*3/uL (0.0-0.1); BASO % 0.7 % (0.0-1.0); EOS # 0.3 10*3/uL (0.0-0.4); EOS % 3.6 % (1.0-4.0); HEMATOCRIT 47.6 % (37.0-47.0); LYMPH # 2.8 10*3/uL (1.3-4.4); LYMPH % 34.7 % (27.0-41.0); MEAN CELL VOLUME 90.5 fl (81.0-99.0); MEAN CORPUSCULAR HGB 29.1 pg (27.0-31.0); MEAN CORPUSCULAR HGB CONC 32.1 g/dl (33.0-37.0); MEAN PLATELET VOLUME 11.6 fl (9.6-12.3); MONO # 0.5 10*3/uL (0.1-1.0); MONO % 6.6 % (3.0-9.0); NEUT # 4.4 10*3/uL (2.3-7.9); NEUT % 53.4 % (47.0-73.0); PLATELET COUNT AUTOMATED 164 10*3/uL (130-400); RED BLOOD COUNT 5.26 10*6/uL (4.10-5.10); RED CELL DISTRI WIDTH 12.6 % (0-14.5); WHITE BLOOD COUNT 8.2 10*3/uL (4.8-10.8)
[2023-11-15 15:21] LABS: ALKALINE PHOSPHATASE 72 U/L (46-116); BUN 9 mg/dl (9-23); CHLORIDE 107 mmol/L (98-107); CHOLESTEROL 141 mg/dL (<200); FREE T4 0.86 ng/dl (0.89-1.76); LDL CHOLESTEROL 67 mg/dL (9-159); POTASSIUM 4.3 mmol/L (3.4-5.1); SGPT/ALT 46 U/L (5-49); TRIGLYCERIDES 142 mg/dl (<150); VITAMIN D, 25-HYDROXY 71.5 ng/mL (30-100)
== END | disposition home or self-care (01) ==
LOC: LAB 14:16
PROVIDERS: ATTEND Internal Medicine
DX: R07.9 Chest pain, unspecified (principal); I10 Essential (primary) hypertension; E87.5 Hyperkalemia

== ENCOUNTER 2024-02-02 00:52 | Emergency (ER) | payer OTHER ==
[~2024-02-02] VITALS: Ht 175.2 cm; Wt 81.6 kg
[2024-02-02] MEDS ORDERED: MYRBETRIQ50 M1 PO (01:02)
[2024-02-02] MEDS ORDERED: METRONIDAZOLE500 M1 PO (01:03)
[2024-02-02] MEDS ORDERED: AZITHROMYCIN 250 MG TAB PO ONE (01:05)
[2024-02-02 01:22] LABS: BILIRUBIN Negative (Negative); BLOOD 1+ (Negative); CLARITY Clear (Clear); COLOR Yellow (Yellow); GLUCOSE Negative (Negative); KETONE Negative (Negative); LEUKO ESTERASE Negative (Negative); NITRITE Negative (Negative); PH 6.5 (4.5-8.0); SPECIFIC GRAVITY <= 1.005 (1.001-1.030); UROBILINOGEN 0.2 E.U./dl (0.0-1.0)
[2024-02-02 02:06] LABS: EPITHELIAL CELLS 16-20
== END 2024-02-02 02:18 | disposition left against medical advice (07) ==
LOC: ED 00:52
PROVIDERS: Internal Medicine
DX: Z00.00 Encounter for general adult medical examination without abnormal findings (principal); F32.A Depression, unspecified; Z88.2 Allergy status to sulfonamides; Z88.8 Allergy status to other drugs, medicaments and biological substances; Z90.49 Acquired absence of other specified parts of digestive tract; Z98.890 Other specified postprocedural states; F17.210 Nicotine dependence, cigarettes, uncomplicated; F12.90 Cannabis use, unspecified, uncomplicated; Z79.899 Other long term (current) drug therapy

== ENCOUNTER 2024-10-09 04:56 | Emergency (ER) | payer OTHER ==
[~2024-10-09] VITALS: Ht 175.2 cm; Wt 97.5 kg
[~2024-10-09 04:56] MED LIST changes: +METRONIDAZOLE500 M1 PO; +MYRBETRIQ50 M1 PO
[2024-10-09 05:07] VITALS: BP 154/94
[2024-10-09] MEDS ORDERED: SODIUM CHLORIDE 0.9% 1,000 ML IV ONE (05:15)
[2024-10-09] MEDS ORDERED: Ondansetron Hydrochloride 4 MG/2 ML VIAL IV ONE (05:15)
[2024-10-09] MEDS ORDERED: Ondansetron4 MG PO (06:40)
== END 2024-10-09 07:04 | disposition home or self-care (01) ==
LOC: ED 04:56
DX: B34.9 Viral infection, unspecified (principal); R11.2 Nausea with vomiting, unspecified; G47.10 Hypersomnia, unspecified; F17.210 Nicotine dependence, cigarettes, uncomplicated; Z88.2 Allergy status to sulfonamides; Z90.49 Acquired absence of other specified parts of digestive tract; Z98.890 Other specified postprocedural states

== ENCOUNTER 2024-10-10 23:50 | Emergency (ER) | payer OTHER ==
[~2024-10-10] VITALS: Ht 175.2 cm; Wt 90.7 kg
[~2024-10-10 23:50] MED LIST changes: +Ondansetron4 MG PO
[2024-10-10 23:59] VITALS: BP 151/92
[2024-10-11 00:16] LABS: BILIRUBIN Negative (Negative); BLOOD Negative (Negative); CLARITY Clear (Clear); COLOR Yellow (Yellow); GLUCOSE Negative (Negative); KETONE Negative (Negative); LEUKO ESTERASE Trace (Negative); NITRITE Negative (Negative); PH 5.5 (4.5-8.0)
[2024-10-11] MEDS ORDERED: Phenergan25 MG PO (02:07)
[2024-10-11] MEDS ORDERED: Promethazine Hydrochloride 25 MG TAB PO ONE (02:10)
== END 2024-10-11 02:13 | disposition home or self-care (01) ==
LOC: ED 23:50
PROVIDERS: Internal Medicine
DX: B34.9 Viral infection, unspecified (principal); R11.2 Nausea with vomiting, unspecified; F17.210 Nicotine dependence, cigarettes, uncomplicated; Z88.2 Allergy status to sulfonamides; Z79.899 Other long term (current) drug therapy; Z90.49 Acquired absence of other specified parts of digestive tract; Z98.890 Other specified postprocedural states

== ENCOUNTER 2025-01-17 22:42 | Emergency (ER) | payer OTHER ==
[~2025-01-17] VITALS: Ht 175.2 cm; Wt 90.7 kg
[~2025-01-17 22:42] MED LIST changes: +Phenergan25 MG PO
[2025-01-17 23:19] VITALS: BP 150/100
[2025-01-17] MEDS ORDERED: Acetaminophen/Hydrocodone 5 MG/325 MG TABLET PO ONE (23:50)
[2025-01-18] MEDS ORDERED: MELOXICAM7.5 MG PO (03:01)
== END 2025-01-18 03:11 | disposition home or self-care (01) ==
LOC: ED 22:42
DX: S29.012A Strain of muscle and tendon of back wall of thorax, initial encounter (principal); S16.1XXA Strain of muscle, fascia and tendon at neck level, initial encounter; S46.912A Strain of unspecified muscle, fascia and tendon at shoulder and upper arm level, left arm, initial encounter; I10 Essential (primary) hypertension; M25.552 Pain in left hip; F17.210 Nicotine dependence, cigarettes, uncomplicated; Z88.2 Allergy status to sulfonamides; Z79.899 Other long term (current) drug therapy; Z87.442 Personal history of urinary calculi; Z90.49 Acquired absence of other specified parts of digestive tract; Z98.890 Other specified postprocedural states; V48.5XXA Car driver injured in noncollision transport accident in traffic accident, initial encounter; Y93.29 Activity, other involving ice and snow; Y92.89 Other specified places as the place of occurrence of the external cause; Y99.8 Other external cause status

== ENCOUNTER 2025-02-03 18:58 | Emergency (ER) | payer OTHER ==
[~2025-02-03] VITALS: Ht 175.2 cm; Wt 90.7 kg
[~2025-02-03 18:58] MED LIST changes: +MELOXICAM7.5 MG PO
[2025-02-03 19:15] VITALS: BP 160/90
[2025-02-03] MEDS ORDERED: SODIUM CHLORIDE 0.9% 1,000 ML IV ONE (19:30)
[2025-02-03] MEDS ORDERED: Ondansetron Hydrochloride 4 MG/2 ML VIAL IV ONE (19:30)
[2025-02-03 20:06] LABS: BASO # 0.1 10*3/uL (0.0-0.1); BASO % 0.5 % (0.0-1.0); EOS # 0.1 10*3/uL (0.0-0.4); HEMATOCRIT 47.9 % (37.0-47.0); MEAN CELL VOLUME 87.4 fl (81.0-99.0); MEAN CORPUSCULAR HGB 29.2 pg (27.0-31.0); MEAN CORPUSCULAR HGB CONC 33.4 g/dl (33.0-37.0); MEAN PLATELET VOLUME 11.9 fl (9.6-12.3); MONO # 0.4 10*3/uL (0.1-1.0); MONO % 4.3 % (3.0-9.0); NEUT # 6.6 10*3/uL (2.3-7.9); NEUT % 70.7 % (47.0-73.0); PLATELET COUNT AUTOMATED 174 10*3/uL (130-400); RED BLOOD COUNT 5.48 10*6/uL (4.10-5.10); RED CELL DISTRI WIDTH 12.1 % (0-14.5); WHITE BLOOD COUNT 9.3 10*3/uL (4.8-10.8)
[2025-02-03] MEDS ORDERED: Ketorolac Tromethamine 30 MG/ML VIAL IV ONE (20:35)
[2025-02-03] MEDS ORDERED: diphenhydrAMINE hydrochloride 50 MG/ML VIAL IV ONE (20:35)
[2025-02-03] MEDS ORDERED: Metoclopramide Hydrochloride 10 MG/2 ML VIAL IV ONE (20:35)
[2025-02-03 20:36] LABS: ALKALINE PHOSPHATASE 59 U/L (46-116); BUN 6 mg/dl (9-23); CHLORIDE 107 mmol/L (98-107); POTASSIUM 3.5 mmol/L (3.4-5.1); SGPT/ALT 24 U/L (5-49); TOTAL PROTEIN 7.7 gm/dL (6.0-8.0)
== END 2025-02-03 21:45 | disposition home or self-care (01) ==
LOC: ED 18:58
PROVIDERS: Nurse Practitioner
DX: G43.909 Migraine, unspecified, not intractable, without status migrainosus (principal); R68.83 Chills (without fever); F17.210 Nicotine dependence, cigarettes, uncomplicated; F12.90 Cannabis use, unspecified, uncomplicated; F32.A Depression, unspecified; Z88.2 Allergy status to sulfonamides; Z88.8 Allergy status to other drugs, medicaments and biological substances; Z98.51 Tubal ligation status; Z90.49 Acquired absence of other specified parts of digestive tract; Z98.890 Other specified postprocedural states

== ENCOUNTER 2025-03-14 10:36 | Emergency (ER) | payer OTHER ==
[~2025-03-14] VITALS: Ht 175.2 cm; Wt 95.3 kg
[2025-03-14 10:48] VITALS: BP 149/89
[2025-03-14] MEDS ORDERED: Metoclopramide Hydrochloride 10 MG/2 ML VIAL IV ONE (11:10)
[2025-03-14] MEDS ORDERED: SODIUM CHLORIDE 0.9% 1,000 ML IV ONE (11:10)
[2025-03-14] MEDS ORDERED: diphenhydrAMINE hydrochloride 50 MG/ML VIAL IV ONE (11:10)
[2025-03-14 11:31] LABS: BASO # 0.1 10*3/uL (0.0-0.1); BASO % 0.7 % (0.0-1.0); EOS # 0.1 10*3/uL (0.0-0.4); MEAN CELL VOLUME 89.6 fl (81.0-99.0); MEAN CORPUSCULAR HGB 29.3 pg (27.0-31.0); MEAN CORPUSCULAR HGB CONC 32.7 g/dl (33.0-37.0); MEAN PLATELET VOLUME 11.7 fl (9.6-12.3); MONO # 0.4 10*3/uL (0.1-1.0); MONO % 4.7 % (3.0-9.0); NEUT # 5.7 10*3/uL (2.3-7.9); NEUT % 62.2 % (47.0-73.0); PLATELET COUNT AUTOMATED 173 10*3/uL (130-400); RED BLOOD COUNT 5.02 10*6/uL (4.10-5.10); RED CELL DISTRI WIDTH 12.4 % (0-14.5); WHITE BLOOD COUNT 9.2 10*3/uL (4.8-10.8)
[2025-03-14 11:59] LABS: ALKALINE PHOSPHATASE 56 U/L (46-116); BUN 9 mg/dl (9-23); CHLORIDE 105 mmol/L (98-107); POTASSIUM 4.6 mmol/L (3.4-5.1); SGPT/ALT 57 U/L (5-49); TOTAL PROTEIN 6.4 gm/dL (6.0-8.0)
[2025-03-14] MEDS ORDERED: Ondansetron4 MG PO (12:16)
== END 2025-03-14 12:20 | disposition home or self-care (01) ==
LOC: ED 10:36
PROVIDERS: Nurse Practitioner Family
DX: R11.2 Nausea with vomiting, unspecified (principal); R10.9 Unspecified abdominal pain; F17.210 Nicotine dependence, cigarettes, uncomplicated; Z88.2 Allergy status to sulfonamides; Z90.49 Acquired absence of other specified parts of digestive tract; Z98.890 Other specified postprocedural states

== ENCOUNTER 2025-04-02 18:12 | Emergency (ER) | payer OTHER ==
[2025-04-02 18:33] VITALS: BP 165/96
[2025-04-02] MEDS ORDERED: Acetaminophen/Oxycodone 5 MG/325 MG TABLET PO ONE (19:35)
[2025-04-02] MEDS ORDERED: NAPROSYN500 MG PO (21:12)
== END 2025-04-02 21:18 | disposition home or self-care (01) ==
LOC: ED 18:12
DX: S60.222A Contusion of left hand, initial encounter (principal); F32.A Depression, unspecified; F17.200 Nicotine dependence, unspecified, uncomplicated; Z88.1 Allergy status to other antibiotic agents; Z88.2 Allergy status to sulfonamides; Z88.8 Allergy status to other drugs, medicaments and biological substances; Z90.49 Acquired absence of other specified parts of digestive tract; Z98.890 Other specified postprocedural states; W22.8XXA Striking against or struck by other objects, initial encounter; Y93.89 Activity, other specified; Y92.89 Other specified places as the place of occurrence of the external cause; Y99.8 Other external cause status